=== PATIENT | female | born 1955 | race Caucasian/White ===

== ENCOUNTER 2017-11-15 10:23 | Outpatient (RCR) | payer OTHER ==
[2017-10-20 13:52] VITALS: BP 116/76
--- NOTE | 2017-10-20 14:44 | ONC Progress Note - NP.Halsey ---
Patient History Date of Service Oct 20, 2017 Reason For Visit/HPI Patient is seen in the clinic today for a newly developed bright red, sharply marginated scaled area on her left upper arm. Patient reports that it is itching. She noticed it approximately 1 week ago. She denies any changes in soaps or lotions. She has no other areas on her body. She has been using an over -the-counter anti-itch cream for only 2 days. There have been no changes in the size. In review of patient's last report she has been seen for her stage I follicular thyroid cancer diagnosed in November 2012. She continues on levothyroxine. She denies any changes over the last year. She has not had any labs drawn and was scheduled for a follow-up appointment in early September but this appointment was missed. Patient also has not had an [employer] pelvic exam for several years. She has had a hysterectomy. She has not had a recent mammogram in at least 4-5 years. She did have a bone density study completed through the [facility] approximately one year ago and reports that it was good. She feels that she drinks a lot of milk and that her vitamin D level should be good. Problem List (1) Scaling of skin (2) Thyroid cancer (3) H/O hand surgery (4) H/O: hysterectomy (5) H/O partial thyroidectomy Oncology History The patient had a 1.3 cm left follicular thyroid carcinoma with initial surgery on December 06, 2012 and completed right hemithyroidectomy on January 03, 2013 with negative pathology. She was given 1-131 101 Sari on April 05, 2013. Post-treatment body scan showed uptake only in the neck. Tg 3.5 at time of 1- 131 therapy. Her most recent ultrasound was negative on September 14, 2013. Her thyroid dose was lowered in August of 2013, but followup labs were not done. Most recently, patient followed with Dr. Encarnacion, and thyroglobulin was less than 20. Thyroglobulin tumor marker was less than 0.1. This was on April 16, 2014. On April 11, 2014, TSH was 145.353. Patient had received Thyrogen on April 09 and April 10. CBC was within normal limits on February 27, 2014, and chemistry was within normal limits. Patient's TSH on February 27, 2014 was 1.816. 08/27/14, TSH 0.1, Thyroglobulin 0.24 September 2016 Thyroglobulin AB was < 0.9,Thyroglobulin was < 0.1, TSH was 0.02- patient is asymptomatic, Free T4 was 1.96- Patient on 88mcg Synthroid. 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 , 15 GM TP BID for infection, #1 G 1 Refill apply small amount to affected area twice daily x 7 days. Prov:PRISCILA GOVEA QUALITY INSPECTOR-BC, ONC 03/27/16 Ibuprofen (IBUPROFEN) 600 Mg Tablet, 1 TAB PO Q6H Y for PAIN, #30 Prov:SARAVANAN MONACO DO 09/27/13 Reported Medications Temazepam (TEMAZEPAM) 15 Mg Capsule, 15 MG PO DAILY, CAPSULE 03/25/16 Alprazolam 0.5 Mg Tab (ALPRAZOLAM 0.5 MG TAB) 0.5 Mg Tablet, 0.5 MG PO TID, TAB 09/06/14 Albuterol Sulfate (Proventil Hfa) 8.5 Gm Aer.w.adap, 1-2 PUFF INH hasn't used her inhaler yet, will take 2 puffs prior to surgery 12/06/12 11/30/12 Escitalopram Oxalate (Lexapro) 20 Mg Tablet, 20 MG PO QDAY, 0 Refills 10/20/10 Lisinopril (Lisinopril) 10 Mg Tablet, 10 MG PO DAILY, 0 Refills 10/20/10 Hydrochlorothiazide (Hydrochlorothiazide) 25 Mg Tab, 25 MG PO QDAY, 0 Refills 10/20/10 Cetirizine Hcl (Zyrtec) 10 Mg Tab, 10 MG PO 2XWEEK PRN, 0 Refills 10/20/10 Naproxen Sodium (Aleve) 220 Mg Tablet, 220 MG PO PRN, 0 Refills 10/20/10 Acetaminophen (Tylenol) 500 Mg Tab, 1-2 TAB PO PRN, 0 Refills 10/20/10 Discontinued Reported Medications Rizatriptan Benzoate (Maxalt) 10 Mg Tab, 10 MG PO PRN, 0 Refills 10/20/10 Allergies: Coded Allergies: adhesive (Verified Allergy, Intermediate, HIVES, 09/27/13) ketorolac tromethamine (Verified Adverse Reaction, Intermediate, ABDOMINAL PAIN, EVEN WITH MEALS, 09/27/13) Uncoded Allergies: hayfever (Allergy, Intermediate, UNKNOWN, 03/30/12) Review of System/Physical Exam Review of Systems All Systems Reviewed/Normal: Yes, Except as Noted Skin: Positive for Skin Rash (new area of scaled erythematous lesion on the right upper arm. Patient has multiple moles.) Physical Exam Vital Signs Temperature: 96.8 Pulse: 84 BP Systolic: 116 BP Diastolic: 76 Respiratory Rate: 16 O2 SAT: 96 O2 Delivery: Room Air Height (inches) 65.50 Weight lb: 144 Weight oz: 3.0 Weight Kg (Kamran): [phone] Pain: 0 ECOG Score: 0 General: Stable, Well Developed, Well Nourished, Not In Acute Distress Psychiatric: Mood appears normal, Affect appears normal Skin: Skin Rashes (0.5 cm erythematous to, sharply marginated single lesion with minimal scaling and slight palpable elevation over the left upper arm at the T-shirt line. No with other areas noted on either arm. No signs or symptoms of infection or irritation from scratching.) Assessment and Plan Assessment & Plan Naheed is a very pleasant 62-year-old female who presents with the following. 1. Stage I follicular thyroid carcinoma, currently no evidence of disease. She had two surgeries for a right hemithyroidectomy. Based on the reports, Dr. Rosado reports that he believes she still has some thyroid tissue remaining. She is on 88 mcg of levothyroxine to fully suppress her TSH. Her last labs were from September 2016 and at that time showed no evidence of recurrent disease. Patient is due for follow-up. CBC, CMP, TSH, thyroglobulin antibody and T4 will be drawn today. Patient will follow with Dr. Benjamin to review. Continue on Synthroid 88mcg daily 2. Erythematous, sharply marginated single lesion approximately 0.5 cm in size with scaling and slight elevation upon palpation noted on the right upper arm. Unknown origin, unknown diagnosis, patient was instructed to use cortisone cream on the area 3 times a day and if symptoms of itching and the irritation did not resolve she is to follow with dermatology. Patient agrees with this plan of care. 3. Screening: Prescription for bilateral screening mammogram written today to be completed in October prior next follow-up visit. She is also encouraged to have AUTOMOTIVE PROFESSIONAL exam as it has been 4 years Patient will continue to follow with primary care as scheduled. I personally spent a total of 20 minutes. Of that 20 minutes was counseling/ coordination of patient's care. See my note above for details. Copies to: KEHINDE RITTER NANCY J QUALITY INSPECTOR-BC, ONC Oct 20, 2017 14:44
[2017-10-20 14:51] LABS: PLATELET COUNT, AUTOMATED 299 K/uL (150-450)
[~2017-11-15] VITALS: Ht 166.4 cm; Wt 66.9 kg
[~2017-11-15 10:23] MED LIST: ACE500 PO; ACYC-50 PO; ALBU8.5H11 INH; ALP25 PO; ALPR-448 PO; CET10 PO; CLOT15CR64 TP; ESCI20TA38 PO; HCTZ25 PO; IBUP600T22 PO; KET10 PO; LEVO100T95 PO; LEVO88TA43 PO; LISI-362 PO; NAPR-1043 PO; PER PO; RIZA10 PO; TEMA-1 PO; ZOLP-350 PO
[2017-11-15 10:30] VITALS: BP 117/76
[2017-11-15] MEDS ORDERED: LEVO75TA73 PO (10:53)
--- NOTE | 2017-11-16 17:14 | ONCOLOGY FOLLOW UP NOTE ---
EVENT DATE: August 15, 2018 CHIEF COMPLAINT/REASON FOR VISIT Mrs. Arias is a pleasant 62-year-old female with a history of stage I follicular thyroid cancer here for followup. HISTORY OF PRESENT ILLNESS Naheed returns. She had a 1.3 cm follicular thyroid carcinoma after initial surgery on December 06, 2012. She had a completed hemithyroidectomy in December of 2012, with subsequent radioactive iodine on April 05, 2013. Her post treatment scan only showed uptake in the neck, and her thyroglobulin was 3.5 prior to her iodine-131 therapy. She is doing quite well. She does note some occasional feeling of dysphagia and food getting stuck in her throat if she does not pay attention when she is swallowing. She can have a sip of water and resolve this. Her TSH has been fully suppressed, but her free T4 has been slowing rising over the past two years. Her most recent levothyroxine dose was 88 mcg. Given the elevation we will make a dose adjustment today, but if her TSH goes up significantly we will need to go back to the 88 mcg. PAST MEDICAL/SURGICAL HISTORY 1. Stage I follicular thyroid carcinoma. 2. History of depression. 3. Hypertension. SOCIAL HISTORY Patient is and has presented with her . FAMILY HISTORY Unremarkable. There is cancer on the mother's side, but not the father's side. REVIEW OF SYSTEMS CONSTITUTIONAL: No fevers, chills, weight change. HEENT: No headache or vision changes. She does have some occasional dysphagia. CARDIOVASCULAR: No chest pain, dyspnea on exertion or edema. RESPIRATORY: No shortness of breath, wheeze, cough. She may need to consider a stress test as she has occasional dyspnea on exertion. GASTROINTESTINAL: No nausea, vomiting, diarrhea. GENITOURINARY: No dysuria or hematuria. MUSCULOSKELETAL: No weakness or joint pain. PSYCHIATRIC: No anxiety or depression. ENDOCRINE: No heat or cold intolerance. SKIN: No concerning rashes or lesions. The remainder of the 14-point review of systems is otherwise negative. PHYSICAL EXAMINATION VITAL SIGNS: Blood pressure 117/76, pulse 90, respiratory rate 16, temperature 96.7 Fahrenheit, oxygen saturation 91% on room air. Weight 66.9 kg. Pain 0/10 , fatigue 3/10. GENERAL: In stable condition, resting comfortably in the chair. HEAD: Normocephalic, atraumatic. THROAT: Normal movement on exam. No asymmetry. SKIN: No concerning findings. Remainder of physical exam otherwise unremarkable. IMPRESSION AND PLAN Mrs. Minor is a pleasant 62-year-old female with the following: Stage I follicular thyroid carcinoma, likely cured of her disease. She had two surgeries to complete a right hemithyroidectomy followed by radioactive iodine in 2012. By all reports I believe she has some thyroid tissue remaining which is why she is not on maximum dose levothyroxine. I believe at this point we can reduce her dose down to 75 mcg today, and then recheck her TSH in approximately one month. Likelihood of cure is high. We are now in survivorship. I answered all of her questions today. Billing: Return visit level 4. Total time 30 minutes, counseling time 20. MTDD
== END 2018-01-17 ==
LOC: ONC 10:23
PROVIDERS: ATTEND Nurse Practitioner Family
DX: Z85.850 Personal history of malignant neoplasm of thyroid (principal); L93.0 Discoid lupus erythematosus; Z79.899 Other long term (current) drug therapy; Z79.1 Long term (current) use of non-steroidal anti-inflammatories (NSAID)
CPT/HCPCS: 36415; 82040; 82247; 82310; 82374; 82435; 82565; 82947; 84075; 84132; 84155; 84295; 84439; 84443; 84450; 84460; 84520; 85025; 86800; 99212

== ENCOUNTER → 2017-11-16 | Outpatient (CLI) | payer OTHER ==
[~2017-11-16] MED LIST changes: +LEVO75TA73 PO
--- NOTE | 2017-11-17 09:30 | RADIOLOGY IMAGING REPORT ---
FACILITY: [facility] PATIENT NAME: TRINA ARGUETA : [id number] MR: [id number]: [id number] EXAM DATE: ORDERING PHYSICIAN: PRISCILA GOVEA TECHNOLOGIST: Claudia Meneses PROCEDURE:BILATERAL DIGITAL SCREENING MAMMOGRAM WITH CAD ASSISTED INTERPRETATION & 3D BREAST TOMOSYNTHYSIS COMPARISON:Prior mammograms 06/01/12 INDICATIONS:SCREENING FINDINGS: Moderately dense fibroglandular tissue is scattered throughout the breasts. The parenchymal pattern has remained stable when allowing for difference in mammographic technique & patient positioning. There is no evidence of malignant appearing mass, malignant appearing calcification or secondary sign of malignancy in either breast. DIAGNOSTIC CATEGORY 2--BENIGN FINDING. RECOMMENDATIONS: ROUTINE MAMMOGRAM AND CLINICAL EVALUATION. IMPRESSION: BIRADS 2: Benign finding 1. No significant abnormality is seen Dictated by: Nicole Wild M.D. on 11/16/2017 at 14:08 Transcribed by: FLORIN on 11/16/2017 at 14:25 Approved by: Nicole Wild M.D. on 11/17/2017 at 8:38 [facility]
== END ==
LOC: MAMO 01:34
PROVIDERS: ATTEND Nurse Practitioner Family
DX: Z12.31 Encounter for screening mammogram for malignant neoplasm of breast (principal)
CPT/HCPCS: 77063; 77067

== ENCOUNTER 2018-06-20 12:45 | Outpatient (RCR) | payer OTHER ==
[2018-06-06 10:13] LABS: PLATELET COUNT, AUTOMATED 296 K/uL (150-450)
[2018-06-20 13:00] VITALS: BP 122/76
--- NOTE | 2018-06-22 08:25 | [facility] ONCOLOGY NOTE ---
EVENT DATE: June 20, 2018 CHIEF COMPLAINT/REASON FOR VISIT Ms. Arias is a pleasant 62-year-old female with a history of stage I follicular thyroid cancer here for followup. HISTORY OF PRESENT ILLNESS Naheed returns. She had a 1.3 cm follicular thyroid carcinoma after initial surgery on December 06, 2012. She had a hemithyroidectomy in December 2012 with subsequent radioactive iodine in March 2013. Her post treatment scan showed uptake only of the neck and her thyroglobulin was 3.5 prior to the iodine therapy. Since then she has had no evidence of disease. Her most recent levothyroxine dose was 75 mcg and it has been this way since October. As it has been 5+ years since her treatment, we are now backing off slightly as she was having issues with palpitations and concern that the dose was causing excess hypothyroidism that was having detrimental effects of her heart. That is the ideal to have her TSH fully suppressed. However, we have backed off slightly and her TSH is now 0.5, which I believe is appropriate for this stage in her natural history. PAST MEDICAL/SURGICAL HISTORY 1. Stage I follicular thyroid carcinoma. 2. History of depression. 3. Hypertension. SOCIAL HISTORY Patient is and has presented with her . FAMILY HISTORY Unremarkable. There is cancer on the mother's side, but not the father's side. REVIEW OF SYSTEMS CONSTITUTIONAL: No fevers, chills, weight change, headache. HEENT: She is having some dysphagia that she believes is related to the air quality right now with the high amount of smoke in the air. CARDIOVASCULAR: No chest pain, dyspnea on exertion or edema. RESPIRATORY: No shortness of breath, wheeze, cough. GASTROINTESTINAL: No nausea or vomiting. GENITOURINARY: No dysuria or hematuria. MUSCULOSKELETAL: No weakness or joint pain. PSYCHIATRIC: No anxiety or depression. ENDOCRINE: No heat or cold intolerance. SKIN: No concerning rashes or lesions. The remainder of the 14-point review of systems is otherwise negative. She overall is feeling outstanding and has no symptoms of concern today. PHYSICAL EXAMINATION VITAL SIGNS: Blood pressure 122/76, pulse 78, respiratory rate 16, temperature 97.2 Fahrenheit, oxygen saturation 94% on room air. Weight 67.1 kg and stable. Pain 0/10, fatigue 0/10. GENERAL: Stable condition, resting comfortably in the chair. HEAD: Normocephalic, atraumatic. LYMPHATIC: No appreciable cervical, supraclavicular or axillary adenopathy. NECK: Scar from previous surgery but no asymmetry or abnormality appreciated. ABDOMEN: Soft, nontender. LUNGS: Clear. SKIN: No concerning findings. PSYCHIATRIC: Normal mood and affect. NEUROLOGICAL: No deficits. Remainder of physical exam otherwise unremarkable. IMPRESSION AND PLAN Mrs. Minor is a pleasant 62-year-old female with the following: Stage I follicular thyroid carcinoma, likely cured of her disease. She had two surgeries to complete a right hemithyroidectomy followed by radioactive iodine in 2012. She has some thyroid tissue remaining, which is why she is not on maximum dose levothyroxine. Her dose is now 75 mcg and the level is excellent. I plan to see her once annually. She should see her primary care provider annually as well. I answered all of her questions today. Billing: Return visit level 4. Total time 30 minutes, counseling time 20. MTDD
== END 2018-06-24 08:33 | disposition home or self-care (01) ==
LOC: ONC 12:45
PROVIDERS: ATTEND Internal Medicine
DX: Z85.850 Personal history of malignant neoplasm of thyroid (principal); L93.0 Discoid lupus erythematosus; Z79.899 Other long term (current) drug therapy; Z79.1 Long term (current) use of non-steroidal anti-inflammatories (NSAID); E07.9 Disorder of thyroid, unspecified
CPT/HCPCS: 36415; 82040; 82247; 82310; 82374; 82435; 82565; 82947; 84075; 84132; 84155; 84295; 84439; 84443; 84450; 84460; 84520; 85025; 86800; 99212